=== PATIENT | male | born 1980 ===

== ENCOUNTER 2018-12-02 15:44 | Outpatient (CLI) | payer BC | END 2018-12-02 15:45 | disposition home or self-care (01) | LOC: C.LAB 15:44 | DX: L72.3 Sebaceous cyst (principal) ==

== ENCOUNTER 2018-12-09 10:03 | Day surgery (SDC) | payer BC ==
[2018-12-09] MEDS ORDERED: Lidocaine/Epinephrine 1% 1:100000 10 ML IJ ONE (13:17)
[2018-12-09] MEDS ORDERED: Bupivacaine HCl 0.25% PF (10 ml) Inj ONE (13:18)
[2018-12-09] MEDS ORDERED: ceFAZolin 1 gm in NS 1 GM/100 ML BAG IVPB ONE (13:53)
[2018-12-09] MEDS ORDERED: Propofol 10 mg/ml Inj (20 ML) ONE (14:46)
[2018-12-09] MEDS ORDERED: Midazolam 2 MG/2 ML VIAL ONE (14:46)
[2018-12-09] MEDS ORDERED: HYDROmorphone 0.5 mg/0.5 ml ISec IVP PRN (15:40)
--- NOTE | 2018-12-09 15:44 | PCM.SURG1 ---
Surgeon's Initial Post Op Note - Surgeon's Notes Surgeon: MD Amor Orange Grower: Kevin PGY3 Pre-Operative Diagnosis: Left axilla mass Operative Findings: Left axilla mass Post-Operative Diagnosis: Left axilla mass Operation Performed: Excision of left axilla mass Specimen/Specimens Removed: Left axilla mass Estimated Blood Loss: EBL {In ML}: 10 Date of Surgery/Procedure: 12/09/18 Time of Surgery/Procedure: 15:00
[2018-12-09 16:32] VITALS: O2SAT 100
[2018-12-09 17:27] VITALS: BP 130/71; PULSE 73; RESP 18; TEMP 97
--- NOTE | 2018-12-10 05:57 | OP ---
PROCEDURE DATE: 12/09/2018 PREOPERATIVE DIAGNOSIS: Sebaceous cyst of the left axilla. POSTOPERATIVE DIAGNOSES: 1. Sebaceous cyst of the left axilla. 2. Redundant stretched out, overlying skin and subcutaneous tissue. PROCEDURES DONE: 1. Excision of sebaceous cyst of the left axilla, approximately 4 x 2 cm size. 2. Excision of redundant overlying skin and subcutaneous tissue, approximately 4 x 2 cm size. 3. Layered closure of the wound complex, 4 x 3 x 3 cm size. ANESTHESIA: Local anesthesia plus sedation. ESTIMATED BLOOD LOSS: Around 10 mL. DRAINS: None. PATHOLOGY: Sebaceous cyst with overlying redundant skin was sent for the pathology. COMPLICATIONS: None. INTRAOPERATIVE FINDINGS: The patient had large sebaceous cyst of the left axilla. DESCRIPTION OF PROCEDURE: On intraoperative step, this is a 38-year-old male who was diagnosed with sebaceous cyst of the left axilla. The patient was consented for the excision of the cyst, brought to the OR, placed supine on the operating room table. After induction of the anesthesia, the left axilla was prepped and draped in the usual sterile fashion, and local anesthesia was injected. Elliptical incision was made, approximately 4 x 2 cm size, and upper and lower flaps were created. The medial and lateral dissection was done. The dissection was carried down deep up to the axillary fat and sebaceous cyst was sent off the table for pathology. There was proper hemostasis in each and every part of the procedure. The overlying redundant skin and subcutaneous tissue was sent for the pathology and now the wound was irrigated, and hemostasis was achieved. The upper and lower flaps were sutured to the underlying fascia as well as the fat and the deep subcu with 2-0 Vicryl, superficial subu with 3-0 Vicryl, skin with 4-0 Monocryl, and dry sterile dressing was applied. The patient tolerated the procedure well. Count of instrument and gauze was correct. There was no apparent complication. Speedy Chinchilla MD [facility]
== END 2018-12-09 17:28 | disposition home or self-care (01) ==
LOC: C.SDS 10:03
PROVIDERS: ATTEND Surgery Surgical Critical Care
DX: L72.3 Sebaceous cyst (principal)
CPT/HCPCS: 11406; 12032; 88304; J0690; J2250; J2704; J3010